=== PATIENT | male | born 1985 | race African-American/Black ===

== ENCOUNTER 2017-04-14 18:14 | Emergency (ER) | payer SELFPAY ==
[~2017-04-14] VITALS: Ht 172.7 cm; Wt 85.3 kg
[2017-04-14] MEDS ORDERED: ULTRAM50 MG PO (22:00)
[2017-04-14] MEDS ORDERED: COLACE100 MG PO (22:00)
[2017-04-14 22:23] VITALS: BP 109/68
== END 2017-04-14 22:26 | disposition home or self-care (01) ==
LOC: EME 18:14
PROC: 06BY3ZC Excision of Hemorrhoidal Plexus, Percutaneous Approach (ICD-10-PCS; principal; 2017-04-14)
DX: K64.5 Perianal venous thrombosis (principal)
CPT/HCPCS: 99281; 99283

== ENCOUNTER 2018-01-29 03:35 | Emergency (ER) | payer OTHER ==
[~2018-01-29] VITALS: Ht 175.3 cm; Wt 77.4 kg
[~2018-01-29 03:35] MED LIST: COLACE100 MG PO; ULTRAM50 MG PO
[2018-01-29] MEDS ORDERED: ANUSOL HC,ANUCO25 MG PR (03:47)
[2018-01-29 04:00] VITALS: BP 116/72
== END 2018-01-29 04:01 | disposition home or self-care (01) ==
LOC: EME 03:35
DX: K64.4 Residual hemorrhoidal skin tags (principal); K64.8 Other hemorrhoids
CPT/HCPCS: 99281; 99284